=== PATIENT | female | born 1970 | race Asian ===

== ENCOUNTER 2017-01-07 08:06 | Emergency (ER) | payer BC, OTHER ==
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
[2017-01-07] MEDS ORDERED: Ketorolac 60 MG/2 ML SDV IM ONE (09:32)
[2017-01-07] MEDS ORDERED: Ibuprofen 800 MG Tab PO ONE (09:35)
[2017-01-07 10:03] VITALS: BP 139/60
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
== END 2017-01-07 10:15 | disposition home or self-care (01) ==
LOC: MW.ED 08:06
DX: S50.01XA Contusion of right elbow, initial encounter (principal); S29.9XXA Unspecified injury of thorax, initial encounter; V09.9XXA Pedestrian injured in unspecified transport accident, initial encounter
CPT/HCPCS: 73060; 73070; 99283; A4566; A9270; 99284

== ENCOUNTER → 2017-01-09 | Outpatient (CLI) | payer BC, OTHER ==
[2017-01-09 11:47] LABS: CHLORIDE,CL 108 mmol/L (98-110); SODIUM,NA 139 mmol/L (136-146)
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
== END ==
LOC: MW.CHFP 09:03
PROVIDERS: ATTEND Family Medicine
DX: R07.81 Pleurodynia (principal); V09.00XA Pedestrian injured in nontraffic accident involving unspecified motor vehicles, initial encounter; R10.11 Right upper quadrant pain
CPT/HCPCS: 36415; 71101-26-RT; 71101-RT; 74176; 74176-26; 80053; 81003; 85027

== ENCOUNTER 2019-10-16 06:31 | Day surgery (SDC) | payer BC ==
[~2019-10-16 06:31] MED LIST: Lactated Ringers 1,000 ML IV SCH
[2019-10-16] MEDS ORDERED: Ondansetron 4 MG/2 ML SDV ONE (07:14)
[2019-10-16] MEDS ORDERED: Propofol 200 MG/20 ML SDV ONE (07:14)
[2019-10-16] MEDS ORDERED: fentaNYL 100 MCG/2 ML SDV ONE ×2 (07:14→08:19)
[2019-10-16] MEDS ORDERED: Lidocaine 2% 100 MG/5 ML Syringe ONE (07:14)
[2019-10-16] MEDS ORDERED: Midazolam 1 MG/ML 2 ML SDV ONE (07:15)
--- NOTE | 2019-10-16 07:40 | PCM.PREANE ---
Preanesthetic Assessment - Anesthesia/Transfusion/Family Hx Anesthesia History: No Prior Anesthesia Family History of Anesthesia Reaction: No Transfusion History: No Prior Transfusion(s) - Review of Systems General: No Symptoms Pulmonary: No Symptoms Cardiovascular: No Symptoms Gastrointestinal: No Symptoms Neurological: No Symptoms Other: Reports: None - Physical Assessment NPO Status Date: 10/16/19 NPO Status Time: 06:00 Vital Signs: Last Vital Signs Temp 96.4 F 10/16/19 06:30 Pulse 119 H 10/16/19 06:30 Resp 18 10/16/19 06:30 BP 136/72 10/16/19 06:30 Pulse Ox 100 10/16/19 06:30 Height: 5 ft 1.5 in Weight: 75.75 kg ASA Class: 2 Mental Status: Alert & Oriented x3 Airway Class: Mallampati = 2 Dentition: Reports: Dentures (upper) ROM/Head Extension: Full Lungs: Clear to Auscultation, Normal Respiratory Effort Cardiovascular: Regular Rate, Regular Rhythm - Lab Values: Laboratory Last Values WBC 5.45 K/uL (4.0-11.0) 10/16/19 07:00 RBC 3.76 M/uL (4.30-5.90) L 10/16/19 07:00 Hgb 10.6 g/dL (12.0-16.0) L 10/16/19 07:00 Hct 32.9 % (36.0-46.0) L 10/16/19 07:00 MCV 87.5 fL (80.0-98.0) 10/16/19 07:00 MCH 28.2 pg (27.0-32.0) 10/16/19 07:00 MCHC 32.2 g/dL (31.0-37.0) 10/16/19 07:00 RDW Std Deviation 51.3 fl (28.0-62.0) 10/16/19 07:00 RDW Coeff of Jessica 16 % (11.0-15.0) H 10/16/19 07:00 Plt Count 382 K/uL (150-400) 10/16/19 07:00 MPV 8.80 fL (7.40-12.00) 10/16/19 07:00 Nucleated RBC % 0.0 /100WBC 10/16/19 07:00 Nucleated RBCs # 0 K/uL 10/16/19 07:00 HCG, Qual NEGATIVE (NEG) 10/16/19 07:00 - Allergies Allergies/Adverse Reactions: Allergies Allergy/AdvReac Type Severity Reaction Status Date / Time No Known Allergies Allergy Verified 10/12/19 08:19 - Blood Blood Available: No - Anesthesia Plan Pre-Op Medication Ordered: None - Acknowledgements Anesthesia Type Planned: General Anesthesia Pt an Appropriate Candidate for the Planned Anesthesia: Yes Alternatives and Risks of Anesthesia Discussed w Pt/Guardian: Yes Pt/Guardian Understands and Agrees with Anesthesia Plan: Yes Additional Comments: PMH: htn PLAN: htn PreAnesthesia Questionnaire - Past Health History Medical/Surgical History: Denies Medical/Surgical History HEENT History: Reports: Other (See Below) Other HEENT History: reading glasses, upper denture Cardiovascular History: Reports: Hypertension Respiratory History: Reports: None Gastrointestinal History: Reports: None Genitourinary History: Reports: None 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: Reports: Dysfunctional Uterine Bleeding, Musculoskeletal History: Reports: None Neurological History: Reports: None Psychiatric History: Reports: None Endocrine/Metabolic History: Reports: Obesity/BMI 30+ Hematologic History: Reports: None Immunologic History: Reports: None Oncologic (Cancer) History: Reports: None Dermatologic History: Reports: None - Past Surgical History Head Surgeries/Procedures: Reports: None HEENT Surgical History: Reports: None Cardiovascular Surgical History: Reports: None Respiratory Surgical History: Reports: None GI Surgical History: Reports: None Female Surgical History: Reports: None Endocrine Surgical History: Reports: None Neurological Surgical History: Reports: None Musculoskeletal Surgical History: Reports: None Oncologic Surgical History: Reports: None Dermatological Surgical History: Reports: None - SUBSTANCE USE Smoking Status *Q: Never Smoker Recreational Drug Use History: No - HOME MEDS Home Medications: Home Meds Ergocalciferol (Vitamin D2) [Vitamin D2] 50,000 units PO WEEKLY 10/12/19 [ History] Iron 65 mg PO DAILY 10/12/19 [History] Losartan [Cozaar] 50 mg PO BID 10/12/19 [History] - CURRENT (IN HOUSE) MEDS Current Meds: Current Medications Lactated Ringer's (Ringers, Lactated) 1,000 mls @ 100 mls/hr IV ASDIRECTED LÓPEZ Last Admin: 10/16/19 06:50 Dose: 100 mls/hr Discontinued Medications Fentanyl (Sublimaze) Confirm Administered Dose 100 mcg .ROUTE .STK-MED ONE Stop: 10/16/19 07:15 Lidocaine HCl (Xylocaine 2%) Confirm Administered Dose 100 mg .ROUTE .STK-MED ONE Stop: 10/16/19 07:15 Lidocaine HCl (Xylocaine-Mpf 1%) Confirm Administered Dose 5 ml .ROUTE .STK-MED ONE Stop: 10/16/19 07:16 Midazolam HCl (Versed 1 Mg/Ml) Confirm Administered Dose 2 mg .ROUTE .STK-MED ONE Stop: 10/16/19 07:16 Ondansetron HCl (Zofran) Confirm Administered Dose 4 mg .ROUTE .STK-MED ONE Stop: 10/16/19 07:15 Propofol (Diprivan 20 Ml) Confirm Administered Dose 200 mg .ROUTE .STK-MED ONE Stop: 10/16/19 07:15
[2019-10-16] MEDS ORDERED: Atropine 0.1 MG/ML 10 ML Syringe IVPUSH PRN ×2 (08:22)
[2019-10-16] MEDS ORDERED: fentaNYL 100 MCG/2 ML SDV IVPUSH PRN (08:22)
[2019-10-16] MEDS ORDERED: EPINEPHrine 1:10,000 1 MG/10 ML Syringe IVPUSH PRN (08:22)
[2019-10-16] MEDS ORDERED: 50% Dextrose in Water 50 ML Syringe IVPUSH PRN (08:22)
[2019-10-16] MEDS ORDERED: Naloxone 0.4 MG/ML Syringe IVPUSH PRN (08:22)
[2019-10-16] MEDS ORDERED: Albuterol 0.083% 2.5 MG/3 ML Neb Soln NEB PRN (08:22)
[2019-10-16] MEDS ORDERED: Ketorolac 30 MG/ML SDV ONE (08:30)
[2019-10-16] MEDS ORDERED: Neostigmine Methylsulfate 1 MG/ML 5 ML Syringe ONE (08:32)
[2019-10-16] MEDS ORDERED: Glycopyrrolate 0.2 MG/ML SDV ONE (08:32)
[2019-10-16] MEDS ORDERED: Rocuronium 100 MG/10 ML Syringe ONE (08:40)
--- NOTE | 2019-10-16 08:46 | PCM.OPNOTE ---
- General Post-Op/Procedure Note Date of Surgery/Procedure: 10/16/19 Operative Procedure(s): operative hysteroscopy, polypectomy, fractional D&C, Jailene endometrial ablation. Findings: Uterus anteverted, sounds to 11 cm, cervix sound to 4.5 cm. Excellent visualization of endometrial cavity including bilateral tubal ostia. multiple small polypoid lesions. Pre Op Diagnosis: menorrhagia, uterine polyps Post-Op Diagnosis: Same Anesthesia Technique: General LMA Primary Surgeon: Zuleyma Muniz Anesthesia Provider: Broderick Dent Textile Dyer: Alice Gamboa Pathology: polyps and endometrial curettings, endocervical curettings. Fluid Replacement, Intraop: 1,000 EBL in mLs: 25 Drain/Tube Comments:: hysteroscopic deficit 230 ml NS Complications: None Known Condition: Good
--- NOTE | 2019-10-16 09:10 | PCM.POSTAN ---
POST ANESTHESIA ASSESSMENT - MENTAL STATUS Mental Status: Alert, Oriented - VITAL SIGNS Vital Signs: Last Vital Signs Temp 98.2 F 10/16/19 08:41 Pulse 98 10/16/19 09:04 Resp 13 10/16/19 09:04 BP 108/54 L 10/16/19 09:04 Pulse Ox 98 10/16/19 09:04 - RESPIRATORY Respiratory Status: Respiratory Rate WNL, Airway Patent, O2 Saturation Stable - CARDIOVASCULAR CV Status: Pulse Rate WNL, Blood Pressure Stable - GASTROINTESTINAL GI Status: No Symptoms - POST OP HYDRATION Hydration Status: Adequate & Stable
--- NOTE | 2019-10-16 09:30 | PCM48HPAN ---
Post Anesthesia Note - EVALUATION WITHIN 48HRS OF ANESTHETIC Vital Signs in Normal Range: Yes Patient Participated in Evaluation: Yes Respiratory Function Stable: Yes Airway Patent: Yes Cardiovascular Function Stable: Yes Hydration Status Stable: Yes Pain Control Satisfactory: Yes Nausea and Vomiting Control Satisfactory: Yes Mental Status Recovered: Yes Vital Signs: Last Vital Signs Temp 97.2 F 10/16/19 09:12 Pulse 103 H 10/16/19 09:12 Resp 14 10/16/19 09:12 BP 125/64 10/16/19 09:12 Pulse Ox 97 10/16/19 09:12
[2019-10-16 09:34] VITALS: BP 121/65; PULSE 97
--- NOTE | 2019-10-16 11:09 | OR ---
SURGEON: Zuleyma Muniz M.D. DATE OF PROCEDURE: 10/16/2019 PREOPERATIVE DIAGNOSES: Menorrhagia, uterine polyps. POSTOPERATIVE DIAGNOSES: Menorrhagia, uterine polyps. PROCEDURES: Operative hysteroscopy, polypectomy, fractional D and C, Jailene thermal endometrial ablation. PRIMARY SURGEON: Zuleyma Muniz MD. ANESTHESIA: General LMA. ESTIMATED BLOOD LOSS: 25 mL. FLUIDS: 1000 mL of crystalloid. HYSTEROSCOPIC DEFICIT: 203 mL of normal saline. PATHOLOGY SPECIMEN: Endometrial curettings with polyps and endocervical curettings. COMPLICATIONS: None known. DISPOSITION: Stable to recovery. BRIEF HISTORY: This is a 49-year-old female. She presents with menorrhagia with anemia. She has had prior ultrasound and endometrial biopsy showing polyps. She was offered hysteroscopic polypectomy followed by Mirena IUD or ablation or expectant management. She desires to proceed with a hysteroscopic polypectomy with Jailene endometrial ablation with risks discussed including bleeding; infection; injury to bowel, bladder, blood vessels, ureters, or other organs; risk of thromboembolic event; risk of anesthesia; risk of delayed diagnosis in the future of endometrial cancer; risk of uterine adhesions. Understanding all these risks, she does desire to proceed. DESCRIPTION OF PROCEDURE: With the patient in the dorsal lithotomy position, under adequate general LMA analgesia, the perineum and vagina were prepped with Betadine and draped in the usual fashion for vaginal surgery. SCDs were in place. Bimanual examination had been performed with the uterus being 10-week size, anteverted, and after an appropriate time-out was held, the speculum was placed in the vagina. The uterus sounded to 11 cm. The cervix sounded to 4.5 cm. The cervix was dilated to a 6 mm Hegar dilator. The hysteroscope was placed into the uterine cavity. There was excellent visualization. Bilateral tubal ostia were identified and there was polypoid tissue within the uterus. No discrete large polyp. Using the MyoSure, the polypoid tissue as well as a general sampling of the endometrium were removed. This being complete, sharp curettage of the endocervix was performed and collected with a Cytobrush. The Jailene system was then set up with the setting for the depth of uterus at 6 cm and with the pre- check all prepared. The Jailene device was placed to the uterine fundus. The balloon was insufflated. The arms were spread. The final check was clear and a 2-minute ablation cycle was performed. The balloon was desufflated. The arms were retracted. The device was removed from the vagina. All the instruments were removed from the vagina. Final sponge, needle, and instrument counts were reported as correct. There were no known complications. The patient was transferred to Recovery in good condition. BONNIE / REECE /[id number]
== END 2019-10-16 09:43 | disposition home or self-care (01) ==
LOC: MW.SDS 06:31
PROVIDERS: ATTEND Obstetrics & Gynecology
DX: C54.1 Malignant neoplasm of endometrium (principal); D50.0 Iron deficiency anemia secondary to blood loss (chronic); I10 Essential (primary) hypertension; E66.9 Obesity, unspecified; Z68.31 Body mass index [BMI] 31.0-31.9, adult; Z79.899 Other long term (current) drug therapy
CPT/HCPCS: 36415; 58563; 84703; 85027; 88305; J1885; J2001; J2250; J2405; J2704; J3010; J3490; J7120; 00952

== ENCOUNTER 2020-12-22 08:11 | Day surgery (SDC) | payer BC ==
--- NOTE | 2020-12-22 07:06 | PCM.PREANE ---
Preanesthetic Assessment - Anesthesia/Transfusion/Family Hx Anesthesia History: Prior Anesthesia Without Reaction Family History of Anesthesia Reaction: No Transfusion History: No Prior Transfusion(s) - Review of Systems General: No Symptoms Pulmonary: No Symptoms Cardiovascular: No Symptoms Gastrointestinal: No Symptoms Neurological: No Symptoms Other: Reports: None - Physical Assessment NPO Status Date: 12/22/20 NPO Status Time: 00:05 Height: 5 ft 1 in Weight: 177 lb ASA Class: 2 Mental Status: Alert & Oriented x3 Airway Class: Mallampati = 2 Dentition: Reports: Normal Dentition ROM/Head Extension: Full Lungs: Clear to Auscultation, Normal Respiratory Effort Cardiovascular: Regular Rate, Regular Rhythm - Allergies Allergies/Adverse Reactions: Allergies Allergy/AdvReac Type Severity Reaction Status Date / Time No Known Allergies Allergy Verified 12/16/20 11:58 - Anesthesia Plan Pre-Op Medication Ordered: None - Acknowledgements Anesthesia Type Planned: General Anesthesia Pt an Appropriate Candidate for the Planned Anesthesia: Yes Alternatives and Risks of Anesthesia Discussed w Pt/Guardian: Yes Pt/Guardian Understands and Agrees with Anesthesia Plan: Yes Additional Comments: npo after mn asthma rad prn inhalers depression gout htn no cv problems myofascial pain obese david no cpap chronic pain one percocet 10mg hs par no questions PreAnesthesia Questionnaire - Past Health History Medical/Surgical History: Denies Medical/Surgical History HEENT History: Reports: Allergic Rhinitis, Other (See Below) Other HEENT History: uses reading glasses, has upper removable partial denture Cardiovascular History: Reports: Arrhythmia, Hypertension, Other (See Below) Other Cardiovascular History: mild tricuspid and mitral valve regurgitation per chart- patient is unaware, Sinus Tachycardia only when drinking coffee Respiratory History: Reports: None Gastrointestinal History: Reports: None Genitourinary History: Reports: None 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: Musculoskeletal History: Reports: None Neurological History: Reports: None Psychiatric History: Reports: None Endocrine/Metabolic History: Reports: Obesity/BMI 30+, Other (See Below) Other Endocrine/Metabolic History: pre-diabetic Hematologic History: Reports: Anemia Immunologic History: Reports: None Oncologic (Cancer) History: Reports: Other (See Below) Other Oncologic History: Endometrial Dermatologic History: Reports: None - Past Surgical History Head Surgeries/Procedures: Reports: None Female Surgical History: Reports: Endometrial Ablation, Hysterectomy Oncologic Surgical History: Reports: Other (See Below) Other Oncologic Surgeries/Procedures: Hysterectomy - SUBSTANCE USE Tobacco Use Status *Q: Never Tobacco User Recreational Drug Use History: No - HOME MEDS Home Medications: Home Meds Losartan [Cozaar] 50 mg PO BID 10/12/19 [History] Ascorbic Acid [Vitamin C] 500 mg PO DAILY 12/16/20 [History] Azelastine HCl 1 spray NASBOTH BID PRN 12/16/20 [History] Biotin 5 mg PO DAILY 12/16/20 [History] Calcium Carbonate [Calcium] 600 mg PO DAILY 12/16/20 [History] Fish Oil/[place]-3 Fatty Acids [Fish Oil 1,000 MG] 1 gm PO DAILY 12/16/20 [History] Propranolol HCl 20 mg PO DAILY 12/16/20 [History] Ubidecarenone [Coq-10] 100 mg PO DAILY 12/16/20 [History] Zinc 50 mg PO DAILY 12/16/20 [History] estradioL [Estradiol (Once Weekly)] 0.025 mg TRDERM DAILY 12/16/20 [History] metFORMIN HCl [Metformin HCl ER] 500 mg PO DAILY 12/16/20 [History] - CURRENT (IN HOUSE) MEDS Current Meds: Current Medications Lactated Ringer's (Ringers, Lactated) 1,000 mls @ 125 mls/hr IV ASDIRECTED LÓPEZ Sodium Chloride (Sodium Chloride 0.9% 10 Ml Syringe) 10 ml FLUSH ASDIRECTED PRN PRN Reason: Keep Vein Open Sodium Chloride (Sodium Chloride 0.9% 2.5 Ml Syringe) 2.5 ml FLUSH ASDIRECTED PRN PRN Reason: Keep Vein Open Sodium Chloride (Sodium Chloride 0.9% 10 Ml Syringe) 10 ml FLUSH ASDIRECTED PRN PRN Reason: Keep Vein Open Sodium Chloride (Sodium Chloride 0.9% 2.5 Ml Syringe) 2.5 ml FLUSH ASDIRECTED PRN PRN Reason: Keep Vein Open Sodium Chloride (Sodium Chloride 0.9% 10 Ml Sdv) 10 ml IV ASDIRECTED PRN PRN Reason: IV Use
[~2020-12-22 08:11] MED LIST changes: +Sodium Chloride 0.9% 10 ML SDV IV PRN; +Sodium Chloride 0.9% 10 ML Syringe FLUSH PRN; +Sodium Chloride 0.9% 2.5 ML Syringe FLUSH PRN
[2020-12-22] MEDS ORDERED: Midazolam 1 MG/ML 2 ML SDV ONE (09:07)
[2020-12-22] MEDS ORDERED: Propofol 200 MG/20 ML SDV ONE (09:07)
[2020-12-22] MEDS ORDERED: fentaNYL 100 MCG/2 ML SDV ONE (09:08)
--- NOTE | 2020-12-22 09:59 | PCM.PREANE ---
Preanesthetic Assessment - Anesthesia/Transfusion/Family Hx Anesthesia History: Prior Anesthesia Without Reaction Family History of Anesthesia Reaction: No Transfusion History: No Prior Transfusion(s) - Review of Systems General: No Symptoms Pulmonary: No Symptoms Cardiovascular: No Symptoms Gastrointestinal: No Symptoms Neurological: No Symptoms Other: Reports: None - Physical Assessment NPO Status Date: 12/22/20 NPO Status Time: 00:05 Vital Signs: Last Vital Signs Temp 96.4 F L 12/22/20 08:16 Pulse 88 12/22/20 08:16 Resp 15 12/22/20 08:16 BP 143/63 H 12/22/20 08:16 Pulse Ox 97 12/22/20 08:16 Height: 5 ft 1 in Weight: 177 lb ASA Class: 2 Mental Status: Alert & Oriented x3 Airway Class: Mallampati = 2 Dentition: Reports: Normal Dentition ROM/Head Extension: Full Lungs: Clear to Auscultation, Normal Respiratory Effort Cardiovascular: Regular Rate, Regular Rhythm - Allergies Allergies/Adverse Reactions: Allergies Allergy/AdvReac Type Severity Reaction Status Date / Time No Known Allergies Allergy Verified 12/16/20 11:58 - Anesthesia Plan Pre-Op Medication Ordered: None - Acknowledgements Additional Comments: npo after mn hayfever htn hx fast hr treated with b dom no more episodes obesity aodm tob none etoh rare PreAnesthesia Questionnaire - Past Health History Medical/Surgical History: Denies Medical/Surgical History HEENT History: Reports: Allergic Rhinitis, Other (See Below) Other HEENT History: uses reading glasses, has upper removable partial denture Cardiovascular History: Reports: Arrhythmia, Hypertension, Other (See Below) Other Cardiovascular History: mild tricuspid and mitral valve regurgitation per chart- patient is unaware, Sinus Tachycardia only when drinking coffee Respiratory History: Reports: None Gastrointestinal History: Reports: None Genitourinary History: Reports: None 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: Musculoskeletal History: Reports: None Neurological History: Reports: None Psychiatric History: Reports: None Endocrine/Metabolic History: Reports: Obesity/BMI 30+, Other (See Below) Other Endocrine/Metabolic History: pre-diabetic Hematologic History: Reports: Anemia Immunologic History: Reports: None Oncologic (Cancer) History: Reports: Other (See Below) Other Oncologic History: Endometrial Dermatologic History: Reports: None - Past Surgical History Head Surgeries/Procedures: Reports: None Female Surgical History: Reports: Endometrial Ablation, Hysterectomy Oncologic Surgical History: Reports: Other (See Below) Other Oncologic Surgeries/Procedures: Hysterectomy - SUBSTANCE USE Tobacco Use Status *Q: Never Tobacco User Recreational Drug Use History: No - HOME MEDS Home Medications: Home Meds Losartan [Cozaar] 50 mg PO BID 10/12/19 [History] Ascorbic Acid [Vitamin C] 500 mg PO DAILY 12/16/20 [History] Azelastine HCl 1 spray NASBOTH BID PRN 12/16/20 [History] Biotin 5 mg PO DAILY 12/16/20 [History] Calcium Carbonate [Calcium] 600 mg PO DAILY 12/16/20 [History] Fish Oil/[place]-3 Fatty Acids [Fish Oil 1,000 MG] 1 gm PO DAILY 12/16/20 [History] Propranolol HCl 20 mg PO DAILY 12/16/20 [History] Ubidecarenone [Coq-10] 100 mg PO DAILY 12/16/20 [History] Zinc 50 mg PO DAILY 12/16/20 [History] estradioL [Estradiol (Once Weekly)] 0.025 mg TRDERM DAILY 12/16/20 [History] metFORMIN HCl [Metformin HCl ER] 500 mg PO DAILY 12/16/20 [History] - CURRENT (IN HOUSE) MEDS Current Meds: Current Medications Lactated Ringer's (Ringers, Lactated) 1,000 mls @ 125 mls/hr IV ASDIRECTED LÓPEZ Last Admin: 12/22/20 08:30 Dose: 125 mls/hr Documented by: Sodium Chloride (Sodium Chloride 0.9% 10 Ml Syringe) 10 ml FLUSH ASDIRECTED PRN PRN Reason: Keep Vein Open Sodium Chloride (Sodium Chloride 0.9% 2.5 Ml Syringe) 2.5 ml FLUSH ASDIRECTED PRN PRN Reason: Keep Vein Open Sodium Chloride (Sodium Chloride 0.9% 10 Ml Syringe) 10 ml FLUSH ASDIRECTED PRN PRN Reason: Keep Vein Open Sodium Chloride (Sodium Chloride 0.9% 2.5 Ml Syringe) 2.5 ml FLUSH ASDIRECTED PRN PRN Reason: Keep Vein Open Sodium Chloride (Sodium Chloride 0.9% 10 Ml Sdv) 10 ml IV ASDIRECTED PRN PRN Reason: IV Use Discontinued Medications Fentanyl (Fentanyl 100 Mcg/2 Ml Sdv) Confirm Administered Dose 100 mcg .ROUTE .STK-MED ONE Stop: 12/22/20 09:09 Midazolam HCl (Midazolam 1 Mg/Ml 2 Ml Sdv) Confirm Administered Dose 2 mg .ROUTE .STK-MED ONE Stop: 12/22/20 09:08 Propofol (Propofol 200 Mg/20 Ml Sdv) Confirm Administered Dose 200 mg .ROUTE .STK-MED ONE Stop: 12/22/20 09:08
--- NOTE | 2020-12-22 12:04 | PCM.OPNOTE ---
- General Post-Op/Procedure Note Date of Surgery/Procedure: 12/22/20 Operative Procedure(s): Screening colonoscopy Findings: Normal colonoscopy Pre Op Diagnosis: Screening colonoscopy Post-Op Diagnosis: same Anesthesia Technique: MAC Primary Surgeon: Faina Hale Condition: Good
--- NOTE | 2020-12-22 12:26 | PCM.POSTAN ---
POST ANESTHESIA ASSESSMENT - MENTAL STATUS Mental Status: Alert, Oriented - VITAL SIGNS Vital Signs: Last Vital Signs Temp 96.4 F L 12/22/20 08:16 Pulse 74 12/22/20 12:17 Resp 14 12/22/20 12:17 BP 108/55 L 12/22/20 12:17 Pulse Ox 95 12/22/20 12:17 - RESPIRATORY Respiratory Status: Respiratory Rate WNL, Airway Patent, O2 Saturation Stable - CARDIOVASCULAR CV Status: Pulse Rate WNL, Blood Pressure Stable - GASTROINTESTINAL GI Status: No Symptoms - POST OP HYDRATION Hydration Status: Adequate & Stable
--- NOTE | 2020-12-22 12:32 | PCM48HPAN ---
Post Anesthesia Note - EVALUATION WITHIN 48HRS OF ANESTHETIC Vital Signs in Normal Range: Yes Patient Participated in Evaluation: Yes Respiratory Function Stable: Yes Airway Patent: Yes Cardiovascular Function Stable: Yes Hydration Status Stable: Yes Pain Control Satisfactory: Yes Nausea and Vomiting Control Satisfactory: Yes Mental Status Recovered: Yes Vital Signs: Last Vital Signs Temp 96.4 F L 12/22/20 08:16 Pulse 74 12/22/20 12:17 Resp 14 12/22/20 12:17 BP 108/55 L 12/22/20 12:17 Pulse Ox 95 12/22/20 12:17 - COMMENTS/OBSERVATIONS Free Text/Narrative:: stable
[2020-12-22 14:48] VITALS: BP 110/57; PULSE 73
--- NOTE | 2020-12-22 19:01 | OR ---
SURGEON: FAINA HALE MD DATE OF PROCEDURE: 12/22/2020 PREOPERATIVE DIAGNOSIS: Screening colonoscopy. POSTOPERATIVE DIAGNOSIS: Screening colonoscopy. PROCEDURE PERFORMED: Screening colonoscopy. PRIMARY SURGEON: Endoscopist: Faina Hale MD ANESTHESIA: MAC. INSTRUMENT USED: Olympus colonoscope. EXTENT OF EXAM: To the cecum. PREPARATION: Good. LIMITATIONS: None. INDICATIONS FOR EXAMINATION: The patient is a 50-year-old female who presents for a screening colonoscopy. I explained the procedure, expected perioperative course, and the risks. She verbalized understanding and wishes to proceed. PROCEDURE IN DETAIL: The patient was brought into the endoscopy suite and placed on the OR cart in the left lateral decubitus position. A time-out was completed verifying the patient's name, age, date of , allergies, and procedure to be performed. Monitored anesthesia care was induced and continuous oxygen was provided via nasal cannula throughout the procedure. After adequate sedation was achieved, a digital rectal exam was performed. This exam was within normal limits. A well- lubricated colonoscope was inserted in the rectum and advanced under direct visualization to the level of the cecum. The cecum was identified by both visual and anatomic landmarks. A photograph was taken of the cecal cap as well as with the scope retroflexed within the cecum. The scope was then fully withdrawn while examining the color, texture, anatomy, and integrity of mucosa from the cecum to the anal canal. The findings were consistent with normal colonic mucosa. The scope was then brought into the rectum and retroflexed to allow visualization of the anal canal opening. This appeared normal and a photograph was taken. The scope was then straightened out and fully withdrawn. The cecum to anus time was 10 minutes. The patient tolerated the procedure well and was transferred to the PACU in stable condition. ENDOSCOPIC DIAGNOSIS: Normal colonoscopy. RECOMMENDATIONS: Follow up in clinic in 10 years. VANESSA / REECE /[id number]
== END 2020-12-22 12:50 | disposition home or self-care (01) ==
LOC: MW.SDS 08:11
PROVIDERS: ATTEND Surgery
DX: Z12.11 Encounter for screening for malignant neoplasm of colon (principal); I10 Essential (primary) hypertension; R73.9 Hyperglycemia, unspecified; R73.03 Prediabetes; E66.9 Obesity, unspecified; Z68.33 Body mass index [BMI] 33.0-33.9, adult; Z85.42 Personal history of malignant neoplasm of other parts of uterus; Z79.899 Other long term (current) drug therapy; Z98.890 Other specified postprocedural states
CPT/HCPCS: 45378; J2250; J2704; J3010; J7120